=== PATIENT | male | born 1940 | race Caucasian/White ===

== ENCOUNTER 2024-02-10 12:55 | Emergency (ER) | payer MEDICAID ==
[~2024-02-10] VITALS: Ht 152.4 cm; Wt 68.9 kg
[2024-02-10 13:02] VITALS: BP 112/75; PULSE 78; RESP 16; TEMP 98.2; O2SAT 94
== END 2024-02-10 14:30 ==
LOC: ER 12:55
DX: H57.12 Ocular pain, left eye (principal); J45.909 Unspecified asthma, uncomplicated; E11.9 Type 2 diabetes mellitus without complications; I10 Essential (primary) hypertension; Z98.890 Other specified postprocedural states
CPT/HCPCS: 93005

== ENCOUNTER 2024-06-29 11:37 | Emergency (ER) | payer OTHER ==
[~2024-06-29] VITALS: Ht 165.1 cm; Wt 73.0 kg
[2024-06-29 11:48] VITALS: O2SAT 98
[2024-06-29 11:49] VITALS: BP 116/74; PULSE 67; RESP 18; TEMP 36.8; O2SAT 96
== END 2024-06-29 14:54 | disposition home or self-care (01) ==
LOC: ER 11:37
DX: S09.90XA Unspecified injury of head, initial encounter (principal); I10 Essential (primary) hypertension; E11.9 Type 2 diabetes mellitus without complications; J45.909 Unspecified asthma, uncomplicated; Z68.26 Body mass index [BMI] 26.0-26.9, adult; Z98.890 Other specified postprocedural states; W18.30XA Fall on same level, unspecified, initial encounter; Y93.89 Activity, other specified; Y92.89 Other specified places as the place of occurrence of the external cause; Y99.8 Other external cause status
CPT/HCPCS: 99284